=== PATIENT | male | born 1960 | race Caucasian/White ===

== ENCOUNTER 2018-12-25 01:59 | Emergency (ER) | payer OTHER ==
--- NOTE | 2018-12-25 02:34 | ED ---
Throat Pain/Nasal Congestion - HPI Summary HPI Summary: Pt is a 58 y/o M presenting to the ED with a chief complaint of throat tightness and difficulty swallowing. He states he was having difficulty sleeping d/t some tightness in his throat, so he got up and walked around for a bit. He drank some water which was difficulty, but not painful. He denies having this issue during the day. He denies sore throat, shortness of breath, or cough. He reports difficulty swallowing and a tight throat. - History of Current Complaint Chief Complaint: EDGeneral Time Seen by Provider: 12/25/18 02:07 Hx Obtained From: Patient Onset/Duration: Sudden Onset, Lasting Hours, Still Present Severity: Moderate Cough: None - Allergies/Home Medications Allergies/Adverse Reactions: Allergies Allergy/AdvReac Type Severity Reaction Status Date / Time No Known Allergies Allergy Verified 12/25/18 02:02 Home Medications: Home Medications Aspirin 81 mg CHEW TAB* 81 mg PO DAILY 12/25/18 [History Confirmed 12/25/18] PARoxetine HCL TAB* [Paxil TAB*] 15 mg PO DAILY 12/25/18 [History Confirmed ] PMH/Surg Hx/FS Hx/Imm Hx Previously Healthy: Yes Endocrine/Hematology History: Denies: Hx Diabetes Cardiovascular History: Reports: Hx Hypertension Denies: Hx Hypercholesterolemia Infectious Disease History: No Infectious Disease History: Denies: Traveled Outside the [place] in Last 30 Days - Family History Known Family History: Positive: None Family History: R & n/C - Social History Alcohol Use: None Hx Substance Use: No Substance Use Type: Reports: None Hx Tobacco Use: No Smoking Status (MU): Never Smoked Tobacco Review of Systems Positive: Other - throat tightness, difficulty swallowing. Negative: Sore Throat Negative: Shortness Of Breath, Cough All Other Systems Reviewed And Are Negative: Yes Physical Exam - Summary Physical Exam Summary: Appearance: Well-appearing, Well-nourished, lying in bed comfortably Skin: Warm, dry, no obvious rash Eyes: sclera anicteric, no conjunctival pallor ENT: mucous membranes moist, pharynx appears normal Neck: Supple, nontender Respiratory: Clear to auscultation, no signs of respiratory distress Cardiovascular: Normal S1, S2. No murmurs. Normal distal pulses in tibial and radial bilaterally. Abdomen: Soft, nontender, normal active bowel sounds present Musculoskeletal: Normal, Strength/ROM Intact Neurological: A&Ox3, awake and alert, mentation is normal, speech is fluent and appropriate Psychiatric: affect is normal, does not appear anxious or depressed Triage Information Reviewed: Yes Vital Signs On Initial Exam: Initial Vitals Temp Pulse Resp BP Pulse Ox 97.6 F 72 18 150/101 98 12/25/18 02:01 12/25/18 02:01 12/25/18 02:01 12/25/18 02:01 12/25/18 02:01 Vital Signs Reviewed: Yes Diagnostics - Vital Signs Vital Signs Temp Pulse Resp BP Pulse Ox 12/25/18 02:01 97.6 F 72 18 150/101 98 - Laboratory Lab Statement: Any lab studies that have been ordered have been reviewed, and results considered in the medical decision making process. EENT Course/Dx - Course Course Of Treatment: Pt is a 58 y/o M presenting to the ED with a chief complaint of throat tightness and difficulty swallowing. He denies having this issue during the day. He denies sore throat, shortness of breath, or cough. He reports difficulty swallowing and a tight throat. The pt's physical exam is normal. He will be sent home with a dx of throat irritation. He is stable and agreeable with this plan. - Diagnoses Provider Diagnoses: Throat irritation Discharge - Sign-Out/Discharge Documenting (check all that apply): Patient Departure Patient Received Moderate/Deep Sedation with Procedure: No - Discharge Plan Condition: Stable Disposition: HOME Referrals: Brianna MEDINA,Mo Day [Primary Care Provider] - 3 Days (if not better) Additional Instructions: I do not see any signs of an airway problem. Most likely there is some type of irritation in the throat, perhaps from allergies or something in your environment, that is causing your symptoms. But I do not have any suspicion of a dangerous type of process. - Billing Disposition and Condition Condition: STABLE Disposition: Home - Attestation Statements Document Initiated by Scribe: Yes Documenting Scribe: Tabatha Rajan Provider For Whom Marcus is Documenting (Include Credential): David Hoover MD. Scribe Attestation: Tabatha Obrien, scribed for David Hoover MD. on 12/31/18 at 0307. Scribe Documentation Reviewed: Yes Provider Attestation: The documentation as recorded by the scribe, Tabatha Rajan accurately reflects the service I personally performed and the decisions made by me, David Hoover MD. Status of Jannetteibe Document: Viewed
[2018-12-25 03:15] VITALS: BP 157/93
== END 2018-12-25 03:18 | disposition home or self-care (01) ==
LOC: ED 01:59
DX: R13.10 Dysphagia, unspecified (principal); I10 Essential (primary) hypertension; Z79.82 Long term (current) use of aspirin; Z79.899 Other long term (current) drug therapy
CPT/HCPCS: 99281